=== PATIENT | female | born 1970 | race Caucasian/White ===

== ENCOUNTER 2024-11-17 17:46 | Emergency (ER) | payer MEDICAID ==
[~2024-11-17] VITALS: Ht 157.5 cm; Wt 50.0 kg
[2024-11-17 17:50] VITALS: O2SAT 100
[2024-11-17] MEDS: SODIUM CHLORIDE 0.9% 1,000 ML IV ONE (18:30)
[2024-11-17 18:31] LABS: BASOPHILS % 0.4 % (0.0-2.0); EOSINOPHILS % 0.3 % (0.0-5.0); HEMATOCRIT. 35.1 % (36.0-48.0); HEMOGLOBIN. 11.8 g/dL (12.0-16.0); LYMPHOCYTES % 13.7 % (20.0-50.0); MEAN PLATELET VOLUME 7.6 fl (7.4-10.4); MONOCYTES % 4.5 % (2.0-8.0); NEUTROPHILS % 81.1 % (40.0-76.0); PLATELET 209 x1000/uL (130-400); RED BLOOD CELL COUNT 3.94 mill/uL (4.2-5.4); RED CELL DISTRIBUTION WIDTH 13.8 % (11.6-14.6)
[2024-11-17] MEDS: KETOROLAC 30MG/ML VIAL IV ONE (18:31)
[2024-11-17 18:45] LABS: CREATININE 0.8 mg/dL (0.6-1.0)
[2024-11-17 18:46] LABS: UREA NITROGEN BLOOD 15 mg/dL (9-23)
[2024-11-17 18:47] LABS: ASPARTATE AMINOTRANSFERASE 43 IU/L (<34)
[2024-11-17 18:48] LABS: BILIRUBIN DIRECT 0.2 mg/dL (<=3.0); BILIRUBIN TOTAL 0.6 mg/dL (0.1-1.0); PROTEIN TOTAL 6.4 g/dL (6.0-8.3)
[2024-11-17 18:51] LABS: CLARITY URINE CLEAR (CLEAR); COLOR URINE YELLOW (YELLOW); GLUCOSE URINE NEGATIVE (NEGATIVE); KETONES URINE NEGATIVE (NEGATIVE); LEUKOCYTE ESTERASE URINE NEGATIVE (NEGATIVE); NITRITE URINE NEGATIVE (NEGATIVE); OCCULT BLOOD URINE NEGATIVE (NEGATIVE); PH URINE 6.5 (4.5-8.0); PROTEIN URINE NEGATIVE (NEGATIVE); SPECIFIC GRAVITY URINE 1.009 (1.005-1.030); UROBILINOGEN URINE 0.2 E.U./dL (0.2-1.0)
[2024-11-17 20:44] VITALS: TEMP 36.8
[2024-11-17] MEDS: POTASSIUM CHLORIDE 20MEQ/PACKET PO NR (21:04)
[2024-11-17] MEDS ORDERED: IOHEXOL-300 100 ML BOTTLE ONE (21:40)
[2024-11-17] MEDS: ACETAMINOPHEN 325MG TABLET PO ONE (22:04)
[2024-11-17] MEDS ORDERED: POLY17PO3 MT (22:10)
[2024-11-17] MEDS ORDERED: ACET-2708 MT (22:10)
[2024-11-17] MEDS ORDERED: NAPR-1129 MT (22:10)
[2024-11-17 22:30] VITALS: BP 114/69; PULSE 64; RESP 14; O2SAT 99
== END 2024-11-17 22:39 | disposition home or self-care (01) ==
LOC: ER 17:46
DX: K59.00 Constipation, unspecified (principal); E87.6 Hypokalemia; Z79.899 Other long term (current) drug therapy
CPT/HCPCS: 99285; 74177; 96374; 96361; 76830; 76856; 80076; 80048; 81003; 83690; 85025; 36415; J1885; Q9967; J7030